=== PATIENT | female | born 1980 | race African-American/Black ===

== ENCOUNTER 2018-09-11 18:17 | Inpatient (IN) | payer BC, OTHER ==
[2018-09-11] MEDS ORDERED: BETAMET NA PHOS/AC(6 MG/ML) 2 ML INJ SYG IM (19:30)
[2018-09-11] MEDS: TERBUTALINE 1 MG/ML INJ SC (19:40)
[2018-09-11] MEDS: LACTATED RINGER'S 1,000 ML IV ×2 (19:41→21:35)
[2018-09-11] MEDS: NIFEdipine 10 MG CAP PO (21:35)
[2018-09-11] MEDS: BETAMET NA PHOS/AC(6 MG/ML) 2 ML INJ SYG IM (21:37)
[2018-09-11] MEDS: ACETAMINOPHEN 325 MG TAB PO (22:40)
[2018-09-12] MEDS: NIFEdipine 10 MG CAP PO ×2 (04:12→10:00)
[2018-09-12] MEDS: LACTATED RINGER'S 1,000 ML IV ×3 (04:29→18:03)
[2018-09-12 05:50] LABS: ADD MAN DIFF? NO
[2018-09-12 05:59] LABS: WHITE BLOOD COUNT 10.8 10^3/ul (4.8-10.8)
[2018-09-12 05:59] LABS: BASOPHILS % 0.3 % (0.0-2.0); EOSINOPHILS % 0.1 % (0.0-7.0); HEMATOCRIT 35.5 % (37.0-47.0); HEMOGLOBIN 11.4 g/dl (12.0-16.0); LYMPHOCYTES # 1.1 10^3/ul (0.8-2.9); LYMPHOCYTES % 10.4 % (15.0-51.0); MEAN CORPUSCULAR HGB CONC 32.1 g/dl (32.0-37.0); MEAN CORPUSCULAR VOLUME 87.2 fl (82.0-101.0); MEAN PLATELET VOLUME 10.3 fl (7.4-10.4); MONOCYTE # 0.3 10^3/ul (0.3-0.9); NEUTROPHIL # 9.1 10^3/ul (1.6-7.5); NEUTROPHILS % 84.1 % (39.0-77.0); PLATELET COUNT 253 10^3/UL (140-415); RED BLOOD COUNT 4.07 10^6/ul (4.20-5.40); RED CELL DISTRIBUTION WIDTH 14.9 % (11.5-14.5)
[2018-09-12 06:27] LABS: INR 0.97; PARTIAL THROMBOPLASTIN TIME 26.3 Sec (23.0-35.0)
[2018-09-12] MEDS ORDERED: OXYTOCIN 30 UNITS/LR 500 ML BAG IV (07:00)
[2018-09-12] MEDS ORDERED: EPHEDrine 25 MG/5 ML SYG (07:00)
[2018-09-12] MEDS ORDERED: PHENYLephrine (100 MCG/ML) 10ML SYG (07:00)
[2018-09-12] MEDS: PRENATAL VITAMIN PO (09:00)
[2018-09-12] MEDS ORDERED: METHYLERGONOVINE 0.2 MG INJ IM ×2 (09:30→17:30)
[2018-09-12] MEDS ORDERED: OXYTOCIN 30 UNITS/LR 500 ML IV ×2 (09:30→17:30)
[2018-09-12] MEDS ORDERED: MISOPROSTOL 200 MCG TAB PR ×2 (09:30→17:30)
[2018-09-12] MEDS ORDERED: ALBUTEROL/IPRATROPIUM (NEB) 3 ML AMP HHN (11:30)
[2018-09-12] MEDS ORDERED: FLUTICASONE/VILANTEROL 200-25 INH DEVICE INH (13:00)
[2018-09-12] MEDS: ONDANSETRON 4 MG INJ IV (13:02)
[2018-09-12] MEDS: METOCLOPRAMIDE 10 MG INJ IV (13:02)
[2018-09-12] MEDS ORDERED: morphine SULFATE/PF (10 MG/10 ML) INJ (13:12)
[2018-09-12] MEDS: AZITHROMYCIN 500MG/NS (PMX) 250 ML IV (13:20)
[2018-09-12] MEDS: CEFAZOLIN 3 GM in DEXTROSE 5% 100 ML IV (13:20)
[2018-09-12 13:26] LABS: HEPATITIS B SURFACE ANTIGEN NEGATIVE (NEGATIVE)
[2018-09-12] MEDS ORDERED: ONDANSETRON 4 MG INJ IV (14:00)
[2018-09-12] MEDS ORDERED: HYDROmorphONE 1 MG/5 ML IV SYRINGE IV (14:00)
[2018-09-12] MEDS ORDERED: METOCLOPRAMIDE 10 MG INJ IV (14:00)
[2018-09-12] MEDS ORDERED: FENTAnyl 50 MCG/ML VIAL IV ×2 (14:00)
[2018-09-12] MEDS ORDERED: KETOROLAC 30 MG INJ IV (14:00)
[2018-09-12] MEDS ORDERED: ALBUTEROL 0.083% (NEB) 2.5 MG/3 ML AMP HHN (14:00)
[2018-09-12] MEDS ORDERED: DIPHENHYDRAMINE 50 MG INJ IV (14:00)
[2018-09-12] MEDS ORDERED: NALOXONE (0.4 MG/ML) INJ IV (14:00)
[2018-09-12] MEDS ORDERED: MEPERIDINE 25 MG INJ IV (14:00)
[2018-09-12] MEDS: OXYTOCIN 30 UNITS/LR 500 ML IV (14:40)
[2018-09-12] MEDS: KETOROLAC 30 MG INJ IV (15:06)
[2018-09-12] MEDS: HYDROmorphONE 1 MG/5 ML IV SYRINGE IV ×2 (15:28→15:40)
[2018-09-12] MEDS ORDERED: ALBUTEROL HFA 8 GM INHALER INH (16:00)
[2018-09-12] MEDS ORDERED: NA PHOSPHATE/BIPHOS 133 ML ENEMA PR (17:30)
[2018-09-12] MEDS ORDERED: CARBOPROST 250 MCG INJ IM (17:30)
[2018-09-12] MEDS: CEFAZOLIN 2 GM/50 ML (PMX) 50 ML IVPB (18:02)
[2018-09-12] MEDS: CLINDAMYCIN 300 MG CAP PO (18:02)
[2018-09-12] MEDS: SENNA/DOCUSATE NA (8.6MG/50MG) TAB PO (21:18)
[2018-09-12 22:04] LABS: RAPID PLASMA REAGIN NONREACTIVE (NR)
[2018-09-13] MEDS: CLINDAMYCIN 300 MG CAP PO ×5 (00:25→23:32)
[2018-09-13] MEDS: CEFAZOLIN 2 GM/50 ML (PMX) 50 ML IVPB ×2 (01:58→10:48)
[2018-09-13] MEDS: LACTATED RINGER'S 1,000 ML IV ×2 (02:37→10:48)
[2018-09-13] MEDS ORDERED: HYDROmorphONE 1 MG/ML SYG IV (08:00)
[2018-09-13] MEDS: KETOROLAC 30 MG INJ IV (08:23)
[2018-09-13] MEDS: SENNA/DOCUSATE NA (8.6MG/50MG) TAB PO ×2 (08:27→20:38)
[2018-09-13 08:38] LABS: ADD MAN DIFF? NO
[2018-09-13 08:49] LABS: BASOPHIL # 0.1 10^3/ul (0.0-0.1); BASOPHILS % 0.4 % (0.0-2.0); EOSINOPHILS # 0.1 10^3/ul (0.0-0.5); EOSINOPHILS % 0.9 % (0.0-7.0); HEMATOCRIT 32.1 % (37.0-47.0); HEMOGLOBIN 10.3 g/dl (12.0-16.0); LYMPHOCYTES # 1.9 10^3/ul (0.8-2.9); LYMPHOCYTES % 15.9 % (15.0-51.0); MEAN CORPUSCULAR HEMOGLOBIN 28.3 pg (29.0-33.0); MEAN CORPUSCULAR HGB CONC 32.1 g/dl (32.0-37.0); MEAN CORPUSCULAR VOLUME 88.2 fl (82.0-101.0); MEAN PLATELET VOLUME 10.6 fl (7.4-10.4); MONOCYTE # 1.4 10^3/ul (0.3-0.9); MONOCYTES % 11.1 % (0.0-11.0); NEUTROPHIL # 8.5 10^3/ul (1.6-7.5); NEUTROPHILS % 70.1 % (39.0-77.0); PLATELET COUNT 235 10^3/UL (140-415); RED BLOOD COUNT 3.64 10^6/ul (4.20-5.40); RED CELL DISTRIBUTION WIDTH 14.8 % (11.5-14.5)
[2018-09-13 08:49] LABS: WHITE BLOOD COUNT 12.2 10^3/ul (4.8-10.8)
[2018-09-13] MEDS: ACETAMINOPHEN 500 MG TAB PO (11:21)
[2018-09-13] MEDS: IBUPROFEN 800 MG TAB PO ×2 (16:14→22:46)
[2018-09-13] MEDS: BISACODYL 10 MG SUPP PR (18:21)
[2018-09-13] MEDS: OXYCODONE/ACETAMINOPHEN (5/325) TAB PO (18:37)
[2018-09-14] MEDS: CLINDAMYCIN 300 MG CAP PO ×3 (05:35→17:55)
[2018-09-14] MEDS: IBUPROFEN 800 MG TAB PO ×3 (05:36→22:07)
[2018-09-14] MEDS: OXYCODONE/ACETAMINOPHEN (5/325) TAB PO ×2 (08:06→15:16)
[2018-09-14] MEDS: SENNA/DOCUSATE NA (8.6MG/50MG) TAB PO ×2 (09:00→21:00)
[2018-09-14] MEDS: LANOLIN HPA 1 PKT TOP (10:57)
[2018-09-14] MEDS ORDERED: ACETAMINOPHEN 325 MG TAB PO (16:30)
[2018-09-15] MEDS: CLINDAMYCIN 300 MG CAP PO ×3 (00:01→11:05)
[2018-09-15] MEDS: SENNA/DOCUSATE NA (8.6MG/50MG) TAB PO ×2 (01:07→09:00)
[2018-09-15] MEDS: OXYCODONE/ACETAMINOPHEN (5/325) TAB PO (04:10)
[2018-09-15] MEDS: IBUPROFEN 800 MG TAB PO ×2 (05:28→14:42)
[2018-09-15] MEDS: DIPHTH/TET/ACEL PERTUSS (ADULT) 0.5 ML VIAL IM* (08:41)
[2018-09-15] MEDS: MEASLES,MUMPS,RUBELLA VACCINE INJ SC* (09:45)
[2018-09-15] MEDS: HYDROCODONE/APAP (5/325) TAB PO (11:05)
== END 2018-09-15 18:15 | disposition home or self-care (01) | DRG 785 ==
LOC: OBT 18:17 → L-D 21:30 → OBT 21:05 → L-D 21:05 → PP1 09-12 16:53
PROVIDERS: Obstetrics & Gynecology
PROC: 10D00Z1 Extraction of Products of Conception, Low, Open Approach (ICD-10-PCS; principal; 2018-09-11)
PROC: 0UT70ZZ Resection of Bilateral Fallopian Tubes, Open Approach (ICD-10-PCS; 2018-09-11)
DX: O34.211 Maternal care for low transverse scar from previous cesarean delivery (principal); O99.214 Obesity complicating childbirth; E66.01 Morbid (severe) obesity due to excess calories; O69.81X0 Labor and delivery complicated by cord around neck, without compression, not applicable or unspecified; Z3A.37 37 weeks gestation of pregnancy; Z37.0 Single live birth; Z30.2 Encounter for sterilization
CPT/HCPCS: 85025; 85610; 85730; 86592; 86850; 86900; 86901; 87340; 88302; 96360; 99464